=== PATIENT | male | born 1970 | race African-American/Black ===

== ENCOUNTER 2021-03-12 00:03 | Emergency (ER) | payer BC, SELFPAY ==
[2021-03-12 02:03] LABS: SARS-CoV-2 NAA Rapid Test DETECTED (NotDetected)
[2021-03-12] MEDS ORDERED: Azithromycin 250 MG TAB ONE (02:13)
== END 2021-03-12 02:20 | disposition home or self-care (01) ==
LOC: MADERS 00:03
DX: U07.1 COVID-19 (principal); J12.82 Pneumonia due to coronavirus disease 2019; E11.9 Type 2 diabetes mellitus without complications; Z79.899 Other long term (current) drug therapy; Z79.82 Long term (current) use of aspirin
CPT/HCPCS: 71045; J7620; U0002

== ENCOUNTER 2021-03-12 11:28 | Emergency (ER) | payer SELFPAY ==
[2021-03-12] MEDS ORDERED: Iopamidol 370 76% 125 ML VIAL FS ONE (11:54)
[2021-03-12 12:05] LABS: #Lymphocytes 1.3 thou/uL (1.20-3.40); #Monocytes 0.7 thou/uL (0.11-0.59); %Basophils 0.8 % (0.0-1.0); %Eosinophils 0.7 % (0.0-10.0); %Lymphocytes 25.2 % (21.0-51.0); %Monocytes 12.9 % (0.0-10.0); %Neutrophils 60.4 % (42.0-75.0); Hemoglobin 15.5 g/dL (14.0-18.0); Mean Corpuscular HGB CONC 31.1 g/dL (32.0-36.0); Mean Corpuscular Hemoglobin 28.3 pg (27.0-31.0); Mean Platelet Volume 8.4 fL (7.4-10.4); Platelet Count 235 thou/uL (130-400); RBC Distribution Width 12.6 % (11.5-14.5); Red Blood Cell (RBC) Count 5.49 mill/uL (4.70-6.10)
[2021-03-12] MEDS ORDERED: Ketorolac Tromethamine 30 MG/ML VIAL ONE (12:11)
[2021-03-12] MEDS ORDERED: Albuterol Sulfate 2.5 mg/0.5 ml Neb ONE (12:12)
[2021-03-12] MEDS ORDERED: Ipratropium Bromide 2.5 ml Neb ONE (12:12)
[2021-03-12 12:16] LABS: ALT (SGPT) 49 U/L (8-55); AST (SGOT) 73 U/L (5-34); Albumin 3.9 g/dL (3.5-5.0); Alkaline Phosphatase 60 U/L (40-110); Anion Gap 17 mmol/L (10-20); BUN (Urea Nitrogen) 18 mg/dL (8.9-20.6); Bilirubin, Total 1.2 mg/dL (0.2-1.2); Calc. Creatinine Clearance 0 mL/min (70-130); Calcium 10.2 mg/dL (7.8-10.44); Carbon Dioxide 28 mmol/L (22-29); Chloride 96 mmol/L (98-107); Globulin 4.5 g/dL (2.4-3.5); Glucose 148 mg/dL (70-105); Potassium 3.4 mmol/L (3.5-5.1); Protein, Total 8.4 g/dL (6.0-8.3); Sodium 138 mmol/L (136-145)
[2021-03-12 12:17] LABS: CRP (Inflammatory) 20.28 mg/dL (= or < 0.5); Magnesium 2.6 mg/dL (1.6-2.6)
== END 2021-03-12 15:13 | disposition home or self-care (01) ==
LOC: MADERS 11:28
DX: U07.1 COVID-19 (principal); I26.99 Other pulmonary embolism without acute cor pulmonale; E11.9 Type 2 diabetes mellitus without complications; Z79.899 Other long term (current) drug therapy
CPT/HCPCS: 71045; 71275; 80053; 83605; 83735; 84484; 85025; 85379; 86140; 93005; 96374; J1885; J7611; Q9967